=== PATIENT | female | born 1975 | race Caucasian/White ===

== ENCOUNTER 2016-10-08 09:31 | Day surgery (SDC) | payer MEDICARE, OTHER ==
[~2016-10-08] VITALS: Ht 165.1 cm; Wt 59.2 kg
[~2016-10-08 09:31] MED LIST: BENA10TA48 PO; CAPT25TA3 PO; CHOL200043 PO; DIAZ-90 PO; FOLI-49 PO; HYDR-3498 PO; HYDR-902 PO; HYDR200T39 PO; METO-429 PO; NEPH PO; NIFE10CA19 PO; OMEP40CA6 PO; PRED5 PO
[2016-10-08 10:12] VITALS: Ht 165.1 cm; Wt 59.2 kg
[2016-10-08] MEDS ORDERED: VIAGRA PO (10:25)
[2016-10-08] MEDS ORDERED: NIFEDICAL XL PO (10:25)
[2016-10-08] MEDS ORDERED: MYCO500T3 PO (10:25)
[2016-10-08] MEDS ORDERED: PLAQUENIL PO (10:25)
[2016-10-08] MEDS ORDERED: FENTAnyl 50 MCG/ML VIAL ONE (10:26)
[2016-10-08] MEDS ORDERED: PROPOFOL 20 ML ONE (10:26)
[2016-10-08] MEDS ORDERED: MIDAZOLAM 1 MG/ML 2 ML INJ ONE (10:26)
[2016-10-08 10:33] VITALS: BP 148/70; PULSE 63; RESP 18
--- NOTE | 2016-10-08 11:40 | GILP ---
DATE OF PROCEDURE: PROCEDURE: Esophagogastroduodenoscopy. PREOPERATIVE DIAGNOSIS: The patient presenting with history of a chronic abdominal pain which is un responsive to routine therapy. Procedure at this time is performed to rule out peptic ulcer disease , to rule out gastritis, etc. POSTOPERATIVE DIAGNOSES: 1. Erosive gastritis of the antrum of the stomach. 2. Multiple polyps noted, probably fundic glands. 3. Biopsies were done. DESCRIPTION OF PROCEDURE: After the informed written consent was obtained, the patient was asked to lie on the left lateral side. Intravenous anesthesia was given by anesthesiologist, Dr. Franklin. W hen the patient became somnolent, the Olympus video upper endoscope was introduced into the orophary nx, then into the esophagus. There is evidence of erythema above the GE junction for about 1 cm in length, indicating Bristol classification A of reflux esophagitis. Scope at this time was advan darlene into the stomach. Multiple bright red erosions were noted in the antrum. Rest of the stomach w as examined which showed multiple polyps, probably the fundic glands. Biopsy was done from the antr um and the lesser curvature and the fundus to rule out H pylori infection. Also biopsies of the ritu yps were also done to rule out possible adenomatous changes in the polyps. At this time, the duodenum was examined up to the end of the third portion which appeared normal, bu t no mucosal abnormality detected. Scope at this time was withdrawn and on the way out, the above f indings were confirmed, and the procedure was terminated. PLAN: Recommend continue omeprazole and wait for the pathology report. Dictated By: ABUNDIO MENA/NEVIN Conf#: [id number] DID#: [id number] CC: Cheter;*EndCC*
[2016-10-08 11:46] VITALS: BP 145/58; PULSE 53; RESP 16
== END 2016-10-08 12:15 | disposition home or self-care (01) ==
LOC: GIL 09:31
PROVIDERS: ATTEND Internal Medicine Gastroenterology
DX: K31.7 Polyp of stomach and duodenum (principal); K29.60 Other gastritis without bleeding; I12.0 Hypertensive chronic kidney disease with stage 5 chronic kidney disease or end stage renal disease; N18.6 End stage renal disease; Z99.2 Dependence on renal dialysis
CPT/HCPCS: 43239; 84132; 88305; 88312; 88313; J2250; J3010

== ENCOUNTER 2017-10-04 13:06 | Observation (INO) | END 2017-10-06 16:00 | disposition home or self-care (01) ==